=== PATIENT | female | born 1990 | race African-American/Black ===

== ENCOUNTER 2017-01-31 00:51 | Inpatient (IN) | payer MEDICAID ==
[~2017-01-31] VITALS: Ht 167.6 cm; Wt 82.6 kg
[2017-01-31] MEDS ORDERED: LACTATED RINGERS 1,000 ML IV SCH (00:53)
[2017-01-31] MEDS ORDERED: BUTORPHANOL TARTRATE 2 MG/ML VIAL IV PRN (01:00)
[2017-01-31] MEDS ORDERED: LIDOCAINE HCL 1% 20ML VIAL (Pyxis) INJ INFIL SCH (01:00)
[2017-01-31] MEDS ORDERED: CARBOPROST TROMETHAMINE 250 MCG/ML AMPUL IM PRN (01:00)
[2017-01-31] MEDS ORDERED: MISOPROSTOL 100MCG TABLET VG SCH (01:00)
[2017-01-31] MEDS ORDERED: NALOXONE HCL 0.4 MG/ML 1ML VIAL IM PRN (01:00)
[2017-01-31] MEDS ORDERED: METHYLERGONOVINE MALEATE 0.2 MG/ML IM PRN (01:00)
[2017-01-31] MEDS ORDERED: DEXT 5%/LR + PITOCIN 20UNITS/L 1,000 ML IV SCH (01:10)
[2017-01-31] MEDS: DEXT 5%/LR + PITOCIN 20UNITS/L 1,000 ML IV SCH ×2 (01:11→02:33)
[2017-01-31] MEDS ORDERED: LANOLIN OINT 0.25 GM TUBE TOP PRN (01:15)
[2017-01-31] MEDS ORDERED: TETANUS, DIPHTHERIA, PERTUSSIS VAC/PF 0.5ML (>7YR OLD) IM ONE (01:15)
[2017-01-31] MEDS ORDERED: HEMORRHOIDAL SUPP PR PRN (01:15)
[2017-01-31] MEDS ORDERED: ACETAMINOPHEN WITH CODEINE 300/30MG TABLET PO PRN (01:15)
[2017-01-31] MEDS ORDERED: DIPHENHYDRAMINE 25MG CAPSULE PO PRN (01:15)
[2017-01-31] MEDS ORDERED: RHO(D) IMMUNE GLOBULIN 300 MCG/SYR IM PRN (01:15)
[2017-01-31] MEDS ORDERED: GLYCERIN/WITCH HAZEL LEAF MEDICATED PAD TOP PRN (01:15)
[2017-01-31 01:44] LABS: BASOPHILS % 0.4 % (0.0-2.0); EOSINOPHILS % 0.8 % (0.0-5.0); HEMATOCRIT. 37.4 % (36.0-48.0); HEMOGLOBIN. 12.7 g/dL (12.0-16.0); LYMPHOCYTES % 29.2 % (20.0-50.0); MEAN CORPUSCULAR HEMOGLOBIN 29.2 pg (28.0-32.0); MEAN CORPUSCULAR VOLUME 86.3 fL (81.0-99.0); MEAN PLATELET VOLUME 10.3 fl (7.4-10.4); MONOCYTES % 12.4 % (2.0-8.0); NEUTROPHILS % 57.2 % (40.0-76.0); PLATELET 294 x1000/uL (130-400); RED BLOOD CELL COUNT 4.34 mill/uL (4.2-5.4); RED CELL DISTRIBUTION WIDTH 13.9 % (11.6-14.6)
[2017-01-31 01:59] LABS: PARTIAL THROMBOPLASTIN TIME 26.8 sec (23.4-31.0); PROTHROMBIN TIME 10.2 sec (9.4-11.6)
[2017-01-31] MEDS: ACETAMINOPHEN WITH CODEINE 300/30MG TABLET PO PRN (02:38)
[2017-01-31 02:45] VITALS: BP 119/52
[2017-01-31 03:15] VITALS: BP 115/58
[2017-01-31 03:45] VITALS: BP 116/63
[2017-01-31 05:02] LABS: CLARITY URINE CLOUDY (CLEAR); COLOR URINE RED (YELLOW); GLUCOSE URINE 3+ (NEGATIVE); KETONES URINE NEGATIVE (NEGATIVE); LEUKOCYTE ESTERASE URINE TRACE (NEGATIVE); NITRITE URINE NEGATIVE (NEGATIVE); OCCULT BLOOD URINE 3+ (NEGATIVE); PH URINE 6.5 (4.5-8.0); PROTEIN URINE 1+ (NEGATIVE); SPECIFIC GRAVITY URINE 1.014 (1.005-1.030); UROBILINOGEN URINE 0.2 E.U./dL (0.2-1.0)
[2017-01-31 05:19] LABS: *AMPHETAMINES SCREEN URINE NEGATIVE (NEGATIVE); *BARBITURATES SCREEN URINE NEGATIVE (NEGATIVE); *BENZODIAZEPINES SCREEN URINE NEGATIVE (NEGATIVE); *COCAINE SCREEN URINE NEGATIVE (NEGATIVE); CANNABINOID URINE SCREEN NEGATIVE (NEGATIVE); METHADONE URINE SCREEN NEGATIVE (NEGATIVE); OPIATES URINE SCREEN NEGATIVE (NEGATIVE); PHENCYCLIDINE URINE SCREEN NEGATIVE (NEGATIVE)
[2017-01-31 06:56] LABS: RUBELLA IGG 53.1 IU/mL (4.99-10)
[2017-01-31 06:57] LABS: HEPATITIS B SURFACE ANTIGEN NEGATIVE
[2017-01-31 08:00] VITALS: BP 100/53
[2017-01-31] MEDS: SIMETHICONE 80MG TABLET CHEW PO SCH ×4 (09:06→21:29)
[2017-01-31] MEDS: PRENATAL VIT/FE FUMARATE/FA TABLET PO SCH (09:07)
[2017-01-31] MEDS: IBUPROFEN 400MG TABLET PO PRN ×2 (09:09→18:09)
[2017-01-31 15:44] LABS: BASOPHILS % 0.1 % (0.0-2.0); EOSINOPHILS % 0.4 % (0.0-5.0); HEMATOCRIT. 34.4 % (36.0-48.0); HEMOGLOBIN. 11.3 g/dL (12.0-16.0); LYMPHOCYTES % 13.6 % (20.0-50.0); MEAN CORPUSCULAR HEMOGLOBIN 28.8 pg (28.0-32.0); MEAN CORPUSCULAR VOLUME 87.4 fL (81.0-99.0); MEAN PLATELET VOLUME 9.9 fl (7.4-10.4); MONOCYTES % 10.2 % (2.0-8.0); NEUTROPHILS % 75.7 % (40.0-76.0); PLATELET 272 x1000/uL (130-400); RED BLOOD CELL COUNT 3.93 mill/uL (4.2-5.4); RED CELL DISTRIBUTION WIDTH 13.9 % (11.6-14.6)
[2017-01-31 17:27] VITALS: BP 114/65
[2017-01-31] MEDS: DOCUSATE SODIUM 100MG CAPSULE PO SCH (21:28)
[2017-02-01] VITALS: BP 101/63
[2017-02-01 07:28] VITALS: BP 102/58
[2017-02-01] MEDS: SIMETHICONE 80MG TABLET CHEW PO SCH ×4 (08:42→21:04)
[2017-02-01] MEDS: PRENATAL VIT/FE FUMARATE/FA TABLET PO SCH (08:42)
[2017-02-01] MEDS: IBUPROFEN 400MG TABLET PO PRN (08:42)
[2017-02-01] MEDS: FERROUS SULFATE 325MG TABLET PO SCH ×2 (12:38→17:26)
[2017-02-01] MEDS: ACETAMINOPHEN WITH CODEINE 300/30MG TABLET PO PRN (12:39)
[2017-02-01] MEDS ORDERED: TETANUS, DIPHTHERIA, PERTUSSIS VAC/PF 0.5ML (>7YR OLD) IM ONE (15:15)
[2017-02-01 15:21] VITALS: BP 110/63
[2017-02-01] MEDS: DOCUSATE SODIUM 100MG CAPSULE PO SCH (21:03)
[2017-02-02 07:51] VITALS: BP 104/65
== END 2017-02-02 11:50 | disposition home or self-care (01) | DRG 560 ==
LOC: L&D 00:51 → OBSVTOIN 00:51 → 7EST PP/OB 02:45
PROVIDERS: ADMIT Specialist; ATTEND Specialist
PROC: 10E0XZZ Delivery of Products of Conception, External Approach (ICD-10-PCS; principal; 2017-01-31 02:30)
DX: O98.32 Other infections with a predominantly sexual mode of transmission complicating childbirth (principal); A63.0 Anogenital (venereal) warts; O90.81 Anemia of the puerperium; D64.9 Anemia, unspecified; Z37.0 Single live birth; Z3A.40 40 weeks gestation of pregnancy
CPT/HCPCS: 36415; 80305; 81001; 85025; 85610; 85730; 86592; 86703; 86762; 86850; 86900; 87340; 90715; 99281; J2590